=== PATIENT | male | born 1940 | race Caucasian/White ===

== ENCOUNTER 2021-12-13 10:45 | Inpatient (IN) | payer OTHER ==
[~2021-12-13] VITALS: Ht 170.2 cm; Wt 90.7 kg
[~2021-12-13 10:45] MED LIST: FLOMAX0.4 MG PO; LISINOPRIL-HCT1 EAC2 PO; METOPROLOL TART50 MG PO
[2021-12-13 14:36] LABS: BODY FLUID SOURCE BRONCH LEFT LUNG
[2021-12-13 14:45] LABS: HEMOGLOBIN 13.8 gm/dl (14.0-17.5); RED BLOOD COUNT 4.91 M/UL (4.20-5.50); WHITE BLOOD COUNT 8.7 K/UL (4.5-11.0)
[2021-12-13 15:18] LABS: BUN/CREATININE RATIO 11 (0-10)
--- NOTE | 2021-12-13 17:12 | NUR ---
NOTIFIED PHARMACY AND CT OF INFILTRATION OF CONTRAST DYE AT 1705. INFILTRATION PROTOCOL IN PLACE. DR. CERVANTES NOTIFIED.
[2021-12-13] MEDS ORDERED: TRELEGY ELLIPT1 EACH INH (18:13)
[2021-12-13] MEDS ORDERED: PROAIR HFA8.5 GM INH (18:14)
[2021-12-14 05:56] LABS: BUN/CREATININE RATIO 12 (0-10)
[2021-12-15 06:09] LABS: HEMOGLOBIN 14.3 gm/dl (14.0-17.5); RED BLOOD COUNT 4.97 M/UL (4.20-5.50)
[2021-12-15 06:32] LABS: WHITE BLOOD COUNT 19.3 K/UL (4.5-11.0)
[2021-12-16 04:18] LABS: WHITE BLOOD COUNT 15.1 K/UL (4.5-11.0)
[2021-12-16 04:22] LABS: HEMOGLOBIN 12.3 gm/dl (14.0-17.5); RED BLOOD COUNT 4.44 M/UL (4.20-5.50)
[2021-12-16 07:41] LABS: BUN/CREATININE RATIO 24 (0-10)
[2021-12-17 05:06] LABS: HEMOGLOBIN 12.1 gm/dl (14.0-17.5); RED BLOOD COUNT 4.32 M/UL (4.20-5.50)
[2021-12-17 05:34] LABS: BUN/CREATININE RATIO 29 (0-10)
[2021-12-18 04:51] LABS: HEMOGLOBIN 12.5 gm/dl (14.0-17.5); RED BLOOD COUNT 4.52 M/UL (4.20-5.50)
[2021-12-18 04:53] LABS: WHITE BLOOD COUNT 8.3 K/UL (4.5-11.0)
[2021-12-18 05:13] LABS: BUN/CREATININE RATIO 34 (0-10)
[2021-12-19 04:38] LABS: HEMOGLOBIN 12.1 gm/dl (14.0-17.5); RED BLOOD COUNT 4.32 M/UL (4.20-5.50)
[2021-12-19 04:54] LABS: BUN/CREATININE RATIO 38 (0-10)
--- NOTE | 2021-12-19 11:35 | NUR ---
WHILE AMBULATING WITH PT ON ROOM AIR THE PATIENTS O2 SAT DROPPED TO 84%. tHE PATIENT IS NOW AGREEABLE TO WEARING OXYGEN AND GOING HOME WITH OXYGEN. ORDER OBTAINED FROM .
[2021-12-19] MEDS ORDERED: LEVOFLOXACIN500 MG PO (11:50)
[2021-12-19] MEDS ORDERED: GLUCOPHAGE 500500 MG PO (11:56)
--- NOTE | 2021-12-19 16:46 | NUR ---
report called to los at [facility]
== END 2021-12-19 14:39 | disposition home or self-care (01) | DRG 163 ==
LOC: OR 10:45 → CCU 14:02
PROVIDERS: Internal Medicine; ADMIT Internal Medicine Pulmonary Disease
PROC: 0B9L8ZZ Drainage of Left Lung, Via Natural or Artificial Opening Endoscopic (ICD-10-PCS; 2021-12-13)
PROC: 0BBG8ZX Excision of Left Upper Lung Lobe, Via Natural or Artificial Opening Endoscopic, Diagnostic (ICD-10-PCS; principal; 2021-12-13 12:00)
PROC: 0BB28ZX Excision of Carina, Via Natural or Artificial Opening Endoscopic, Diagnostic (ICD-10-PCS; principal; 2021-12-13 12:00)
PROC: 0W3Q8ZZ Control Bleeding in Respiratory Tract, Via Natural or Artificial Opening Endoscopic (ICD-10-PCS; principal; 2021-12-13 12:00)
PROC: 0BCG8ZZ Extirpation of Matter from Left Upper Lung Lobe, Via Natural or Artificial Opening Endoscopic (ICD-10-PCS; 2021-12-14)
PROC: 0BB88ZX Excision of Left Upper Lobe Bronchus, Via Natural or Artificial Opening Endoscopic, Diagnostic (ICD-10-PCS; 2021-12-14)
PROC: B24BZZZ Ultrasonography of Heart with Aorta (ICD-10-PCS; 2021-12-15)
DX: C34.90 Malignant neoplasm of unspecified part of unspecified bronchus or lung (principal); A41.9 Sepsis, unspecified organism; J96.01 Acute respiratory failure with hypoxia; J18.9 Pneumonia, unspecified organism; R65.21 Severe sepsis with septic shock; J96.02 Acute respiratory failure with hypercapnia; R04.89 Hemorrhage from other sites in respiratory passages; J44.0 Chronic obstructive pulmonary disease with (acute) lower respiratory infection; E87.2 Acidosis; I13.0 Hypertensive heart and chronic kidney disease with heart failure and stage 1 through stage 4 chronic kidney disease, or unspecified chronic kidney disease; N17.9 Acute kidney failure, unspecified; R73.9 Hyperglycemia, unspecified; I50.9 Heart failure, unspecified; E66.3 Overweight; N18.9 Chronic kidney disease, unspecified; E87.6 Hypokalemia; N40.0 Benign prostatic hyperplasia without lower urinary tract symptoms; Z99.81 Dependence on supplemental oxygen; Z87.19 Personal history of other diseases of the digestive system; Z87.891 Personal history of nicotine dependence; Z80.0 Family history of malignant neoplasm of digestive organs; Z68.31 Body mass index [BMI] 31.0-31.9, adult
CPT/HCPCS: ECHO; 36415; 36600; 71045; 71275; 80048; 80053; 80202; 82550; 82553; 82803; 83036; 83605; 83735; 83880; 84100; 84132; 84484; 85007; 85025; 85027; 87015; 87070; 87116; 87205; 87206; 87252; 88341; 88342; 89051; 92610; 93005; 93306; 93970; 94002; 94003; 94640; 94660; 94664; 94760; 97116; 97116-GP-CQ; 97161; 97168; C9113; J0171; J0360; J1100; J1650; J1940; J2185; J2405; J2704; J2710; J2930; J3010; J3370; J3480; J7040; J7070; Q9967